=== PATIENT | female | born 1975 | race American Indian/Alaskan Native ===

== ENCOUNTER 2017-01-13 09:13 | Outpatient (CLI) | payer MEDICAID ==
--- NOTE | 2017-01-13 14:22 | Ultrasound Report ---
RIGHT UPPER QUADRANT ULTRASOUND: HISTORY: Right upper quadrant abdominal pain. Technique: Transabdominal ultrasound imaging with Doppler interrogation. FINDINGS: The liver is slightly enlarged with increased echotexture consistent with fatty infiltration. No focal liver mass or surface nodularity. These findings are unchanged since the abdominal ultrasound dated 10/24/15. The gallbladder is sonolucent with no evidence of stones, polyps or wall thickening. The common duct is normal in caliber. Images of the liver parenchyma, pancreas, right kidney and aorta are within normal limits. No perihepatic ascites. IMPRESSION: Fatty infiltration of the liver.
== END 2017-01-13 09:14 | disposition home or self-care (01) ==
LOC: US 09:13
DX: K76.0 Fatty (change of) liver, not elsewhere classified (principal); R16.0 Hepatomegaly, not elsewhere classified; F17.200 Nicotine dependence, unspecified, uncomplicated
CPT/HCPCS: 76705

== ENCOUNTER 2017-05-26 10:39 | Outpatient (CLI) | payer MEDICAID ==
--- NOTE | 2017-05-26 13:45 | Fluoroscopy Report ---
UPPER GI AIR CONTRAST: History: Vomiting, abdominal pain FINDINGS: The patient ingested barium without difficulty. The esophageal contour is normal. There are no ulcerations or filling defects seen in the esophagus. There is normal esophageal motility. There is no hiatal hernia or reflux. The gastric contour and position appear normal. There are no ulcerations or filling defects in the stomach. The duodenal bulb and duodenal sweep appear normal. IMPRESSION: Negative double contrast upper GI examination.
== END 2017-05-26 10:40 | disposition home or self-care (01) ==
LOC: FLUORO 10:39
PROVIDERS: ATTEND Nurse Practitioner Adult Health
DX: K76.0 Fatty (change of) liver, not elsewhere classified (principal); R11.2 Nausea with vomiting, unspecified; F17.200 Nicotine dependence, unspecified, uncomplicated
CPT/HCPCS: 74246